=== PATIENT | female | born 1985 | race Caucasian/White ===

== ENCOUNTER 2019-04-08 21:18 | Emergency (ER) | payer OTHER ==
[2019-04-08 21:36] VITALS: BP 127/69
[2019-04-08] MEDS ORDERED: Benzonatate CAP* 100 MG PO ONE ×2 (21:41→21:50)
--- NOTE | 2019-04-13 11:24 | UC ---
Respiratory Complaint HPI - HPI Summary HPI Summary: Since yesterday nonprodutive cough. No fever. "Coughing fits" today making cough worse. No meds taken otc. - History of Current Complaint Chief Complaint: UCRespiratory Stated Complaint: COUGH/CONGESTION Time Seen by Provider: 04/08/19 21:37 Hx Obtained From: Patient Hx Last Menstrual Period: 03/21/19 Pain Intensity: 0 Pain Scale Used: 0-10 Numeric Character: Cough: Nonproductive Aggravating Factors: Nothing Alleviating Factors: Nothing - Allergies/Home Medications Allergies/Adverse Reactions: Allergies Allergy/AdvReac Type Severity Reaction Status Date / Time No Known Allergies Allergy Verified 04/08/19 21:29 Home Medications: Home Medications Bcp 1 tab DAILY 04/08/19 [History Confirmed 04/08/19] PMH/Surg Hx/FS Hx/Imm Hx - Additional Past Medical History Additional PMH: no chronic illness Previously Healthy: Yes - Surgical History Surgical History: Yes Surgery Procedure, Year, and Place: 2 c-sections - Family History Known Family History: Positive: Non-Contributory - Social History Alcohol Use: None Substance Use Type: None Smoking Status (MU): Never Smoked Tobacco Review of Systems All Other Systems Reviewed And Are Negative: Yes Constitutional: Negative: Fever, Chills, Fatigue Skin: Negative: Rash ENT: Positive: Sinus Congestion. Negative: Sore Throat, Ear Ache Respiratory: Positive: Cough Cardiovascular: Positive: Negative Gastrointestinal: Negative: Vomiting, Diarrhea Neurological: Negative: Headache Physical Exam Triage Information Reviewed: Yes Appearance: Well-Appearing Vital Signs: Initial Vital Signs Temp 98.9 F 04/08/19 21:30 Pulse 98 04/08/19 21:30 Resp 16 04/08/19 21:30 BP 127/69 04/08/19 21:30 Pulse Ox 99 04/08/19 21:30 Vital Signs Reviewed: Yes ENT: Positive: Pharynx normal, TMs normal Neck: Positive: Supple, No Lymphadenopathy Respiratory: Positive: Lungs clear, No accessory muscle use. Negative: Crackles , Rhonchi, Wheezing, Other: - coughing during visit Cardiovascular Exam: Normal Neurological: Positive: Alert Respiratory Course/Dx - Course Course Of Treatment: Bronchitis in a usually healthy female. no hx of smoking and aside from coughing during visit no abnormal lung sounds. Will tx cough, likely viral etiology. good vitals. self limiting - Differential Dx/Diagnosis Differential Diagnosis/HQI/PQRI: Bronchitis, Sinusitis Provider Diagnosis: Bronchitis Discharge ED - Sign-Out/Discharge Documenting (check all that apply): Patient Departure All imaging exams completed and their final reports reviewed: No Studies - Discharge Plan Condition: Good Disposition: HOME Prescriptions: Benzonatate CAP* [Tessalon 100 MG CAP*] 100 mg PO TID 10 Days #30 cap Patient Education Materials: Acute Bronchitis (ED) Referrals: No Primary Care Phys,NOPCP [Primary Care Provider] - Additional Instructions: If this lasts for more than 3 wks or you develop fever please visit with your pcp - Billing Disposition and Condition Condition: GOOD Disposition: Home
== END 2019-04-08 21:58 | disposition home or self-care (01) ==
LOC: UCCORT 21:18
DX: J40 Bronchitis, not specified as acute or chronic (principal)
CPT/HCPCS: 99202; A9270-GY; G0463